=== PATIENT | male | born 1960 | race Caucasian/White ===

== ENCOUNTER 2019-09-25 12:06 | Emergency (ER) | payer BC ==
[2019-09-25] MEDS ORDERED: Ondansetron 4 MG/2 ML SDV IVPUSH ONE (13:13)
[2019-09-25] MEDS ORDERED: Ketorolac 30 MG/ML SDV IVPUSH ONE (13:13)
--- NOTE | 2019-09-25 13:43 | EDM.PDOC ---
ED HPI GENERAL MEDICAL PROBLEM - General Chief Complaint: Abdominal Pain Stated Complaint: HERNIA PAIN Time Seen by Provider: 09/25/19 12:08 Source of Information: Reports: Patient History Limitations: Reports: No Limitations - History of Present Illness INITIAL COMMENTS - FREE TEXT/NARRATIVE: HISTORY AND PHYSICAL: History of present illness: Patient is a 59-year-old male who presents to the ED today with concern of right testicular/hernia pain. Patient states he has been having pain off and on over the past 6 to 8 months and had a surgery scheduled in August back home which was canceled due to the COV-ID 19 outbreak. Patient states that over the past several weeks he has had increasing pain of the right testicle and states that at times the pain makes him feel nauseous. Patient states he just recently moved back to [place] and does not know who to follow-up with for potential surgery. Patient denies any other symptoms or concerns. Patient denies fever, chills, chest pain, shortness of breath, or cough. Denies headache, neck stiff ness, change in vision, syncope, or near syncope. Denies nausea, vomiting, abdominal pain, diarrhea, constipation, or dysuria. Has not noted any blood in urine or stool. Patient has been eating and drinking appropriately. Review of systems: As per history of present illness and below otherwise all systems reviewed and negative. Past medical history: As per history of present illness and as reviewed below otherwise noncontributory. Surgical history: As per history of present illness and as reviewed below otherwise noncontributory. Social history: See social history for further information Family history: As per history of present illness and as reviewed below otherwise noncontributory. Physical exam: General: Patient is alert, oriented, and in no acute distress. Patient sitting comfortably on exam table. HEENT: Atraumatic, normocephalic, pupils equal and reactive bilaterally, negative for conjunctival pallor or scleral icterus, mucous membranes moist, TMs normal bilaterally, throat clear, neck supple, nontender, trachea midline. No drooling or trismus noted. No meningeal signs. No hot potato voice noted. Lungs: Clear to auscultation, breath sounds equal bilaterally, chest nontender. Heart: S1S2, regular rate and rhythm without overt murmur Abdomen: Soft, nondistended, nontender. Negative for masses or hepatosplenomegaly. Negative for costovertebral tenderness. Pelvis: Stable nontender. Genitourinary: General Counsel at bedside KB. Left testicle without pain or masses. Patient does have pain of the right inguinal canal but no obvious hernia felt. No other left testicular pain or masses noted. No penile drainage. Rectal: Deferred. Skin: Intact, warm, dry. No lesions or rashes noted. Extremities: Atraumatic, negative for cords or calf pain. Neurovascular unremarkable. Neuro: Awake, alert, oriented. Cranial nerves II through XII unremarkable. Cerebellum unremarkable. Motor and sensory unremarkable throughout. Exam nonfocal. Notes: Discussed all incidental findings on imaging and the importance to have these followed up. Discussed the importance for follow up with general surgery and primary care. Voices understanding and is agreeable to plan of care. Denies any further questions or concerns at this time. Diagnostics: CBC, CMP, UA, Pelvic CT, Testicular US, lipase Therapeutics: Toradol, Zofran Prescription: Diclofenac Impression: Right inguinal hernia, reducible Plan: 1. Tylenol as needed for back pain. Take medication as prescribed. Diclofenac as an anti-inflammatory medication so do not take any additional NSAIDs with this medication, such as naproxen, ibuprofen, or Aleve. 2. Follow-up with your primary care provider and general surgery as discussed. Return to the ED as needed and as discussed. Definitive disposition and diagnosis as appropriate pending reevaluation and review of above. Right Groin Pain Score (Numeric/FACES): 8 - Related Data Allergies Allergy/AdvReac Type Severity Reaction Status Date / Time No Known Allergies Allergy Verified 09/25/19 13:01 Home Meds: Home Meds Diclofenac Sodium [Voltaren] 75 mg PO BIDMEALS PRN #15 tab.cr 09/25/19 [Rx] Past Medical History Cardiovascular History: Reports: Hypertension Gastrointestinal History: Reports: None Neurological History: Reports: None - Past Surgical History Cardiovascular Surgical History: Reports: None GI Surgical History: Reports: Hernia, Inguinal Neurological Surgical History: Reports: Other (See Below) Other Neurological Surgeries/Procedures: Pt reports "Back surgery" Social & Family History - Family History Family Medical History: Noncontributory - Tobacco Use Smoking Status *Q: Current Every Day Smoker Years of Tobacco use: 30 Packs/Tins Daily: 0.5 - Caffeine Use Caffeine Use: Reports: Coffee, Energy Drinks, Soda - Recreational Drug Use Recreational Drug Use: No ED ROS GENERAL - Review of Systems Review Of Systems: Comprehensive ROS is negative, except as noted in HPI. ED EXAM, GENERAL - Physical Exam Exam: See Below (see dictation) Course - Vital Signs Last Recorded V/S: Last Vital Signs Temp 97.7 F 09/25/19 15:48 Pulse 70 09/25/19 15:48 Resp 18 09/25/19 15:48 BP 154/105 H 09/25/19 15:48 Pulse Ox 96 09/25/19 15:48 - Orders/Labs/Meds Orders: Active Orders 24 hr Category Date Time Status Scrotal Duplex Ltd [US] Stat Exams 09/25/19 13:54 Taken Labs: Laboratory Tests 09/25/19 09/25/19 09/25/19 Range/Units 13:20 13:20 13:20 WBC 9.22 (4.0-11.0) K/uL RBC 4.95 (4.50-5.90) M/uL Hgb 15.2 (13.0-17.0) g/dL Hct 44.8 (38.0-50.0) % MCV 90.5 (80.0-98.0) fL MCH 30.7 (27.0-32.0) pg MCHC 33.9 (31.0-37.0) g/dL RDW Std Deviation 41.8 (28.0-62.0) fl RDW Coeff of Anatoly 13 (11.0-15.0) % Plt Count 283 (150-400) K/uL MPV 9.40 (7.40-12.00) fL Neut % (Auto) 63.2 (48.0-80.0) % Lymph % (Auto) 24.1 (16.0-40.0) % [place]oke % (Auto) 7.9 (0.0-15.0) % Eos % (Auto) 4.1 (0.0-7.0) % Baso % (Auto) 0.7 (0.0-1.5) % Neut # (Auto) 5.8 H (1.4-5.7) K/uL Lymph # (Auto) 2.2 (0.6-2.4) K/uL Cooke # (Auto) 0.7 (0.0-0.8) K/uL Eos # (Auto) 0.4 (0.0-0.7) K/uL Baso # (Auto) 0.1 (0.0-0.1) K/uL Nucleated RBC % 0.0 /100WBC Nucleated RBCs # 0 K/uL Sodium 142 (136-148) mmol/L Potassium 4.2 (3.5-5.1) mmol/L Chloride 104 (98-107) mmol/L Carbon Dioxide 30.3 (21.0-32.0) mmol/L BUN 15 (7.0-18.0) mg/dL Creatinine 1.2 (0.8-1.3) mg/dL Est Cr Clr Drug Dosing 69.28 mL/min Estimated GFR (MDRD) > 60.0 ml/min Glucose 108 H (74-106) mg/dL Calcium 8.5 (8.5-10.1) mg/dL Total Bilirubin 0.2 (0.2-1.0) mg/dL AST 12 L (15-37) IU/L ALT 20 (14-63) IU/L Alkaline Phosphatase 69 (46-116) U/L Total Protein 7.1 (6.4-8.2) g/dL Albumin 3.7 (3.4-5.0) g/dL Globulin 3.4 (2.6-4.0) g/dL Albumin/Globulin Ratio 1.1 (0.9-1.6) Lipase 162 (73-393) U/L Urine Color YELLOW Urine Appearance CLEAR Urine pH 7.0 (5.0-8.0) Ur Specific [place] 1.020 (1.001-1.035) Urine Protein NEGATIVE (NEGATIVE) mg/dL Urine Glucose (UA) NEGATIVE (NEGATIVE) mg/dL Urine Ketones NEGATIVE (NEGATIVE) mg/dL Urine Occult Blood NEGATIVE (NEGATIVE) Urine Nitrite NEGATIVE (NEGATIVE) Urine Bilirubin NEGATIVE (NEGATIVE) Urine Urobilinogen 0.2 (<2.0) EU/dL Ur Leukocyte Esterase NEGATIVE (NEGATIVE) Meds: Medications Discontinued Medications Generic Name Dose Route Start Last Admin Trade Name Freq PRN Reason Stop Dose Admin Iopamidol 100 ml 09/25/19 14:34 09/25/19 14:35 Isovue Multipack-370 (76%) IVPUSH 09/25/19 14:35 100 ml ONETIME ONE Administration Ketorolac Tromethamine 30 mg 09/25/19 13:13 09/25/19 13:37 Toradol IVPUSH 09/25/19 13:14 30 mg ONETIME ONE Administration Ondansetron HCl 4 mg 09/25/19 13:13 09/25/19 13:35 Zofran IVPUSH 09/25/19 13:14 4 mg ONETIME ONE Administration Departure - Departure Time of Disposition: 16:11 Disposition: Home, Self-Care 01 Clinical Impression: Right inguinal hernia - Discharge Information Prescriptions: Diclofenac Sodium [Voltaren] 75 mg PO BIDMEALS PRN #15 tab.cr PRN Reason: Pain Referrals: PCP,None [Primary Care Provider] - Forms: ED Department Discharge Additional Instructions: The following information is given to patients seen in the emergency department who are being discharged to home. This information is to outline your options for follow-up care. We provide all patients seen in our emergency department with a follow-up referral. The need for follow-up, as well as the timing and circumstances, are variable depending upon the specifics of your emergency department visit. If you don't have a primary care physician on staff, we will provide you with a referral. We always advise you to contact your personal physician following an emergency department visit to inform them of the circumstance of the visit and for follow-up with them and/or the need for any referrals to a consulting specialist. The emergency department will also refer you to a specialist when appropriate. This referral assures that you have the opportunity for follow-up care with a specialist. All of these measure are taken in an effort to provide you with optimal care, which includes your follow-up. Under all circumstances we always encourage you to contact your private physician who remains a resource for coordinating your care. When calling for follow-up care, please make the office aware that this follow-up is from your recent emergency room visit. If for any reason you are refused follow-up, please contact the [facility] Emergency Department at and asked to speak to the emergency department charge nurse. [facility] [address] [place] [id number] [facility] [address] [place] [address] [facility] [address] [facility], [address] [place] [address] 1. Tylenol as needed for back pain. Take medication as prescribed. Diclofenac as an anti-inflammatory medication so do not take any additional NSAIDs with this medication, such as naproxen, ibuprofen, or Aleve. 2. Follow-up with your primary care provider and general surgery as discussed. Return to the ED as needed and as discussed. Sepsis Event Note - Evaluation Sepsis Screening Result: No Definite Risk - Focused Exam Vital Signs: Vital Signs Temp Pulse Resp BP Pulse Ox 09/25/19 15:48 97.7 F 70 18 154/105 H 96 09/25/19 12:53 97.7 F 93 18 160/105 H 97 Date Exam was Performed: 09/25/19 Time Exam was Performed: 16:10
[2019-09-25 14:01] LABS: BLOOD UREA NITROGEN,BUN 15 mg/dL (7.0-18.0); CARBON DIOXIDE,CO2 30.3 mmol/L (21.0-32.0); CHLORIDE,CL 104 mmol/L (98-107); GLUCOSE RANDOM 108 mg/dL (74-106); LIPASE 162 U/L (73-393); POTASSIUM,K 4.2 mmol/L (3.5-5.1); SODIUM,NA 142 mmol/L (136-148)
[2019-09-25] MEDS ORDERED: Iopamidol 755 MG/ML 200 ML Multipack Bottle IVPUSH ONE (14:34)
--- NOTE | 2019-09-25 16:00 | CT ---
CT pelvis Technique: Multiple axial sections through the pelvis were obtained. Intravenous contrast was not utilized. No oral contrast was given. Comparison: No prior pelvis study. Findings: Very small fat-containing bilateral inguinal hernias are noted. Fat- containing umbilical hernia is noted. No pelvic mass or adenopathy is noted. Minimal sigmoid diverticulosis is seen without diverticulitis. Minimal calcifications within the prostate gland are noted. No free fluid or inflammatory change is seen. Bone window settings shows severe disc space narrowing at L4-L5 with vacuum disc phenomenon. Annular rupture is seen with vacuum disc phenomena seen posteriorly within the central canal. Cyst is noted within the superior left pubic bone believed to be benign. Impression: 1. Minimal fat-containing bilateral inguinal hernias. 2. Degenerative change within the lumbar spine as noted above. 3. Other findings believed to be incidental. Diagnostic code #2 Study was dictated in MDT MTDD
--- NOTE | 2019-09-25 16:07 | US ---
Testicular ultrasound: Multiple real-time images of the testicles were obtained. Small right-sided epididymal cyst is noted which measures about 4 mm. Small bilateral hydroceles are noted. Left testicle shows a small hypoechoic area measuring 3 mm. Recommend follow-up study of this finding. Right testicle appears within normal limits. Both arterial and venous blood flow are felt to be present within both testicles. Measurements: Right testicle: 4.6 x 1.4 x 3.2 cm Left testicle: 4.8 x 2.2 x 3.2 cm Impression: 1. 3 mm abnormality within the left testicle which will most likely be benign and incidental although follow-up testicular ultrasound recommended in 6 months to confirm stability. This follow-up study would occur in March,. 2. Small bilateral hydroceles. 3. 4 mm epididymal cyst on the right side. Diagnostic code #9 This report was dictated in MDT
--- NOTE | 2019-09-26 09:12 | US ---
EXAM DATE: 09/25/19 PATIENT'S AGE: 59 Testicular ultrasound: Multiple real-time images of the testicles were obtained. Small right-sided epididymal cyst is noted which measures about 4 mm. Small bilateral hydroceles are noted. Left testicle shows a small hypoechoic area measuring 3 mm. Recommend follow- up study of this finding. Right testicle appears within normal limits. Both arterial and venous blood flow are felt to be present within both testicles. Measurements: Right testicle: 4.6 x 1.4 x 3.2 cm Left testicle: 4.8 x 2.2 x 3.2 cm Impression: 1. 3 mm abnormality within the left testicle which will most likely be benign and incidental although follow-up testicular ultrasound recommended in 6 months to confirm stability. This follow-up study would occur in March,. 2. Small bilateral hydroceles. 3. 4 mm epididymal cyst on the right side. Diagnostic code #9 This report was dictated in MDT Report Signed by Proxy. MARY LOU
== END 2019-09-25 16:39 | disposition home or self-care (01) ==
LOC: MW.ED 12:06
DX: K40.90 Unilateral inguinal hernia, without obstruction or gangrene, not specified as recurrent (principal); I10 Essential (primary) hypertension; F17.210 Nicotine dependence, cigarettes, uncomplicated
CPT/HCPCS: 36415; 72193; 76870; 80053; 81003; 83690; 85025; 93976; 96374; 96375; 99284; J1885; J2405; Q9967